=== PATIENT | male | born 1950 | race Two or more races ===

== ENCOUNTER 2023-11-04 19:28 | Inpatient (IN) | payer OTHER ==
[~2023-11-04] VITALS: Ht 172.7 cm; Wt 88.2 kg
[2023-11-04 20:13] LABS: Basophils # (auto) 0 10 ^3/uL (0-0.2); Basophils % (auto) 0.3 % (0.0-2.0); Eosinophils # (auto) 0 10 ^3/uL (0-0.8); Eosinophils % (auto) 0.7 % (0.0-7.0); Hemoglobin 10.1 g/dL (13.5-17.5); Lymphocytes # (auto) 1.4 10 ^3/uL (0.4-5.4); Lymphocytes % (auto) 20.7 % (10.0-50.0); Mean Corpuscular Hemoglobin 31.1 pg (28.0-32.0); Mean Corpuscular Hgb Conc. 34.6 g/dL (32.0-36.0); Mean Corpuscular Volume 89.8 fL (80.0-100.0); Monocytes # (auto) 0.4 10 ^3/uL (0-1.3); Monocytes % (auto) 6.7 % (0.0-12.0); Neutrophils # (auto) 4.7 10 ^3/uL (1.6-8.6); Neutrophils % (auto) 71.6 % (37.0-80.0); Nucleated Red Blood Cells % 0.4 %; Red Blood Cells 3.23 10^6/uL (4.5-5.90); Red Cell Distribution Width 14.8 % (11.8-14.3); White Blood Cell 6.6 10^3/uL (4.4-10.8)
[2023-11-04 20:28] LABS: Alanine Aminotransferase 33 U/L (7-40); Alkaline Phosphatase 90 U/L (46-116); Anion Gap 7 (5-15); Aspartate Aminotransferase 30 U/L (13-40); BUN/Creatinine Ratio 38.2 (10.0-20.0); Blood Urea Nitrogen 29 mg/dL (9-23); Calcium 7.9 mg/dL (8.7-10.4); Carbon Dioxide 24 mmol/L (20-30); Chloride 100 mmol/L (98-107); Glucose 205 mg/dL (74-106); INR 1.03 (0.9-1.15); Magnesium 1.9 mg/dL (1.6-2.6); Partial Thromboplastin Time 29.5 SEC (24.5-34.5); Potassium 4.5 mmol/L (3.5-5.1); Prothrombin Time 10.8 sec (9.3-11.8); Sodium 131 mmol/L (136-145)
[2023-11-04 20:29] LABS: Albumin 3.4 g/dL (3.2-4.8); Bilirubin, Total 0.8 mg/dL (0.2-1.0); Total Protein 5.1 g/dL (5.7-8.2)
[2023-11-04] MEDS: SODIUM CHLORIDE 0.9% 1,000 ML IV SCH (21:15)
[2023-11-04] MEDS ORDERED: ACETAMINOPHEN 325 MG TAB PO PRN (21:15)
[2023-11-04] MEDS ORDERED: DEXTROSE (50%) 50ML SYRG IV PRN (21:15)
[2023-11-04] MEDS ORDERED: ONDANSETRON HCL 4 MG/2 ML VIAL IV PRN (21:15)
[2023-11-04] MEDS: ONDANSETRON HCL 4 MG/2 ML VIAL IV ONE (21:31)
[2023-11-04] MEDS: MORPHINE SULFATE 4 MG/ML SYR/VIAL IV ONE (21:31)
[2023-11-04] MEDS: HYDROcodone-ACET 5/325MG TAB PO PRN (21:35)
[2023-11-04] MEDS: SODIUM CHLORIDE 0.9% 500 ML IVB ONE (21:36)
[2023-11-04 22:15] VITALS: PULSE 99; RESP 12; O2SAT 100
[2023-11-04] MEDS ORDERED: NITROGLYCERIN 0.4 MG SL TAB SL PRN ×2 (22:15→22:30)
[2023-11-04] MEDS ORDERED: MORPHINE SULFATE INJ 2 MG/ml SYRG IV PRN ×2 (22:15→22:30)
[2023-11-05] VITALS (7 sets, daily range): BP systolic 103–128; BP diastolic 55–76; PULSE 68–95; RESP 15–20; TEMP 36.6; O2SAT 93–97
[2023-11-05] MEDS: ACCU-CHEK COMFORT CURVE STRIP VI SCH (01:56)
[2023-11-05] MEDS: InsuLIN REG 1unit/0.01ml Soln (100units/ml) SC SCH (01:58)
[2023-11-05] MEDS: InsuLIN REG 1unit/0.01ml Soln (100units/ml) ONE (02:00)
[2023-11-05] MEDS: MORPHINE SULFATE INJ 2 MG/ml SYRG ONE (02:08)
[2023-11-05] MEDS: MORPHINE SULFATE INJ 2 MG/ml SYRG IV PRN (02:11)
[2023-11-05] MEDS ORDERED: ATOR10TA52 PO (04:09)
[2023-11-05] MEDS ORDERED: GLIPPOW9 PO (04:09)
[2023-11-05] MEDS ORDERED: METF-372 PO (04:09)
[2023-11-05] MEDS ORDERED: OMEP20TA PO (04:18)
[2023-11-05] MEDS ORDERED: LISI10TA34 PO (04:18)
[2023-11-05 08:34] LABS: COVID19 ANTIGEN SOFIA FIA NEGATIVE (NEGATIVE)
[2023-11-05] MEDS: ENOXAPARIN SOD 40 MG/0.4 ML SYRINGE SC SCH (10:30)
[2023-11-06] VITALS (8 sets, daily range): BP systolic 120–151; BP diastolic 70–89; PULSE 67–103; RESP 16–19; TEMP 98–99.5; O2SAT 90–100
[2023-11-06 06:04] LABS: Alanine Aminotransferase 31 U/L (7-40); Albumin 3.5 g/dL (3.2-4.8); Alkaline Phosphatase 92 U/L (46-116); Anion Gap 6 (5-15); Aspartate Aminotransferase 37 U/L (13-40); BUN/Creatinine Ratio 22.4 (10.0-20.0); Blood Urea Nitrogen 13 mg/dL (9-23); Calcium 8.3 mg/dL (8.7-10.4); Carbon Dioxide 28 mmol/L (20-30); Chloride 98 mmol/L (98-107); Glucose 139 mg/dL (74-106); Potassium 4.1 mmol/L (3.5-5.1); Sodium 132 mmol/L (136-145); Total Protein 5.4 g/dL (5.7-8.2)
[2023-11-06 06:51] LABS: Basophils # (auto) 0 10 ^3/uL (0-0.2); Basophils % (auto) 0.4 % (0.0-2.0); Eosinophils # (auto) 0.1 10 ^3/uL (0-0.8); Eosinophils % (auto) 0.9 % (0.0-7.0); Hematocrit 27.5 % (41.0-53.0); Hemoglobin 9.6 g/dL (13.5-17.5); Lymphocytes # (auto) 1.6 10 ^3/uL (0.4-5.4); Lymphocytes % (auto) 24.2 % (10.0-50.0); Mean Corpuscular Hemoglobin 31.3 pg (28.0-32.0); Mean Corpuscular Hgb Conc. 34.8 g/dL (32.0-36.0); Monocytes # (auto) 0.5 10 ^3/uL (0-1.3); Monocytes % (auto) 8.5 % (0.0-12.0); Neutrophils # (auto) 4.3 10 ^3/uL (1.6-8.6); Nucleated Red Blood Cells % 1.2 %; Red Blood Cells 3.05 10^6/uL (4.5-5.90); Red Cell Distribution Width 14.5 % (11.8-14.3); White Blood Cell 6.4 10^3/uL (4.4-10.8)
[2023-11-06] MEDS ORDERED: fentaNYL CITRATE 100 MCG/2 ML VL ONE (07:34)
[2023-11-06] MEDS ORDERED: MIDAZOLAM HCL 2MG/2ML 2ml VIAL (1mg/ml) ONE (07:35)
[2023-11-06] MEDS ORDERED: PROPOFOL 10 MG/ML 20 ML IV ONE (08:00)
[2023-11-06] MEDS: ceFAZolin 1GM/50ML 100 ML IV ONE (08:08)
[2023-11-06] MEDS ORDERED: ePHEDrine SULFATE 50 MG/ML AMP ONE (08:33)
[2023-11-06] MEDS: TRANEXAMIC ACID 10 ML ONE (08:40)
[2023-11-06] MEDS: ROPIVACAINE 0.5% (5MG/ML) 20ML AMPULE IJ ONE (09:13)
[2023-11-06] MEDS: LACTATED RINGER'S 1,000 ML IV SCH (09:15)
[2023-11-06] MEDS: ceFAZolin 1GM/50ML 50 ML IV SCH (09:15)
[2023-11-06] MEDS ORDERED: HYDROmorphone HCL 2 MG/ML VL/or syr IV PRN (09:45)
[2023-11-06] MEDS ORDERED: MEPERIDINE HCL (25 MG/ML) 1ML VIAL IV PRN (09:45)
[2023-11-06] MEDS ORDERED: ONDANSETRON HCL 4 MG/2 ML VIAL IV PRN (09:45)
[2023-11-06] MEDS: CLINDAMYCIN 600MG IV 50 ML IV SCH (14:11)
[2023-11-06 14:23] LABS: Triglycerides 128 mg/dL (< 150)
[2023-11-06 14:24] LABS: LDL Cholesterol 65 mg/dL (< 100)
[2023-11-06 14:25] LABS: Cholesterol 112 mg/dL (< 200); HDL Cholesterol 24 mg/dL (40-59)
[2023-11-06] MEDS: ATORVASTATIN 20 MG TAB PO SCH (21:27)
[2023-11-07] VITALS (7 sets, daily range): BP systolic 122–151; BP diastolic 63–78; PULSE 73–110; RESP 16–24; TEMP 98–98.8; O2SAT 90–97
[2023-11-07 06:47] LABS: Basophils # (auto) 0 10 ^3/uL (0-0.2); Basophils % (auto) 0.2 % (0.0-2.0); Eosinophils # (auto) 0 10 ^3/uL (0-0.8); Eosinophils % (auto) 0.3 % (0.0-7.0); Hematocrit 29.2 % (41.0-53.0); Hemoglobin 10.2 g/dL (13.5-17.5); Lymphocytes # (auto) 1.3 10 ^3/uL (0.4-5.4); Lymphocytes % (auto) 19.5 % (10.0-50.0); Mean Corpuscular Hemoglobin 31.3 pg (28.0-32.0); Mean Corpuscular Hgb Conc. 34.8 g/dL (32.0-36.0); Monocytes # (auto) 0.5 10 ^3/uL (0-1.3); Monocytes % (auto) 7.9 % (0.0-12.0); Neutrophils # (auto) 4.7 10 ^3/uL (1.6-8.6); Neutrophils % (auto) 72.1 % (37.0-80.0); Red Blood Cells 3.25 10^6/uL (4.5-5.90); Red Cell Distribution Width 14.3 % (11.8-14.3); White Blood Cell 6.6 10^3/uL (4.4-10.8)
[2023-11-07 06:52] LABS: Alanine Aminotransferase 30 U/L (7-40); Alkaline Phosphatase 88 U/L (46-116); Anion Gap 6 (5-15); Aspartate Aminotransferase 43 U/L (13-40); BUN/Creatinine Ratio 18.5 (10.0-20.0); Blood Urea Nitrogen 10 mg/dL (9-23); Calcium 8.5 mg/dL (8.5-10.1); Carbon Dioxide 28 mmol/L (20-30); Chloride 96 mmol/L (98-107); Glucose 191 mg/dL (74-106); Potassium 4.2 mmol/L (3.5-5.1); Sodium 130 mmol/L (136-145)
[2023-11-07 06:53] LABS: Albumin 3.4 g/dL (3.2-4.8); Bilirubin, Total 1.2 mg/dL (0.2-1.0); Total Protein 5.4 g/dL (5.7-8.2)
[2023-11-07] MEDS: LISINOPRIL 10 MG TAB PO SCH (11:03)
[2023-11-07] MEDS: SODIUM CHL 3% 500 ML IV ONE (18:30)
[2023-11-08 05:13] VITALS: BP 131/68; PULSE 78; RESP 18; TEMP 98.1; O2SAT 97
[2023-11-08] MEDS: DOCUSATE SOD 100 MG CAP PO PRN (05:39)
[2023-11-08 06:02] LABS: Basophils # (auto) 0 10 ^3/uL (0-0.2); Basophils % (auto) 0.5 % (0.0-2.0); Eosinophils # (auto) 0 10 ^3/uL (0-0.8); Eosinophils % (auto) 0.8 % (0.0-7.0); Hemoglobin 9.8 g/dL (13.5-17.5); Lymphocytes # (auto) 1.3 10 ^3/uL (0.4-5.4); Lymphocytes % (auto) 21.1 % (10.0-50.0); Mean Corpuscular Hemoglobin 30.3 pg (28.0-32.0); Mean Corpuscular Hgb Conc. 33.9 g/dL (32.0-36.0); Mean Corpuscular Volume 89.7 fL (80.0-100.0); Monocytes # (auto) 0.5 10 ^3/uL (0-1.3); Monocytes % (auto) 8.3 % (0.0-12.0); Neutrophils # (auto) 4.2 10 ^3/uL (1.6-8.6); Neutrophils % (auto) 69.3 % (37.0-80.0); Nucleated Red Blood Cells % 1.7 %; Red Blood Cells 3.24 10^6/uL (4.5-5.90); Red Cell Distribution Width 14.9 % (11.8-14.3)
[2023-11-08 06:18] LABS: Alanine Aminotransferase 29 U/L (7-40); Albumin 3.1 g/dL (3.2-4.8); Alkaline Phosphatase 85 U/L (46-116); Anion Gap 4 (5-15); Aspartate Aminotransferase 39 U/L (13-40); BUN/Creatinine Ratio 22.2 (10.0-20.0); Blood Urea Nitrogen 12 mg/dL (9-23); Calcium 8.3 mg/dL (8.5-10.1); Carbon Dioxide 29 mmol/L (20-30); Chloride 102 mmol/L (98-107); Glucose 179 mg/dL (74-106); Potassium 3.9 mmol/L (3.5-5.1)
[2023-11-08 06:19] LABS: Sodium 135 mmol/L (136-145)
[2023-11-08 08:00] VITALS: PULSE 72
[2023-11-08 08:30] VITALS: BP 129/67; PULSE 82; RESP 17; TEMP 98.8
[2023-11-08] MEDS ORDERED: HYDR-4902 PO (11:05)
[2023-11-08] MEDS ORDERED: DOCU-265 PO (11:05)
[2023-11-08 12:30] VITALS: BP 129/67
[2023-11-08 15:00] VITALS: BP 136/76; PULSE 96; RESP 20; TEMP 98.8; O2SAT 95
[2023-11-08 17:03] VITALS: BP 133/65; PULSE 91; RESP 20; TEMP 98.7; O2SAT 94
[2023-11-09] MEDS ORDERED: LISINOPRIL 5 MG TAB PO SCH (10:00)
== END 2023-11-08 18:31 | disposition home health service (06) | DRG 481 ==
LOC: ER 19:28 → EDBD 19:28 → ER 22:11 → TELE 22:11 → TELE-WESTW 11-05 00:02
PROVIDERS: ADMIT Internal Medicine; ATTEND Specialist
PROC: 30233N1 Transfusion of Nonautologous Red Blood Cells into Peripheral Vein, Percutaneous Approach (ICD-10-PCS; 2023-11-06)
PROC: 0QS704Z Reposition Left Upper Femur with Internal Fixation Device, Open Approach (ICD-10-PCS; principal; 2023-11-06 08:08)
DX: S72.142A Displaced intertrochanteric fracture of left femur, initial encounter for closed fracture (principal); E87.1 Hypo-osmolality and hyponatremia; R71.0 Precipitous drop in hematocrit; I10 Essential (primary) hypertension; E78.5 Hyperlipidemia, unspecified; E66.9 Obesity, unspecified; E11.65 Type 2 diabetes mellitus with hyperglycemia; Z96.641 Presence of right artificial hip joint; W18.39XA Other fall on same level, initial encounter; K21.9 Gastro-esophageal reflux disease without esophagitis; Z20.822 Contact with and (suspected) exposure to COVID-19; Z79.84 Long term (current) use of oral hypoglycemic drugs; Y93.89 Activity, other specified; Y92.89 Other specified places as the place of occurrence of the external cause; Y99.8 Other external cause status; Z83.3 Family history of diabetes mellitus; Z82.49 Family history of ischemic heart disease and other diseases of the circulatory system; Z68.29 Body mass index [BMI] 29.0-29.9, adult
CPT/HCPCS: 36415; 71045; 73502; 76000; 80053; 80061; 82962; 83036; 83735; 84484; 85025; 85610; 85730; 86850; 86900; 86901; 86920; 87081; 87426; 93005; 93306; 96360; 97163; G0378; J1815; J2250; J2704; J3490